=== PATIENT | female | born 1980 | race Caucasian/White ===

== ENCOUNTER 2018-09-18 05:30 | Inpatient (IN) | payer BC ==
[2018-09-18] MEDS ORDERED: OXYTOCIN 30 UNITS/LR 500 ML IV ×2 (06:00→13:00)
[2018-09-18] MEDS ORDERED: METHYLERGONOVINE 0.2 MG INJ IM ×2 (06:00→13:00)
[2018-09-18] MEDS ORDERED: CLINDAMYCIN 900 MG/D5W (PMX) 50 ML IVPB (06:00)
[2018-09-18] MEDS ORDERED: MISOPROSTOL 200 MCG TAB PR ×2 (06:00→13:00)
[2018-09-18] MEDS ORDERED: CARBOPROST 250 MCG INJ IM ×2 (06:00→13:00)
[2018-09-18 06:12] LABS: ADD MAN DIFF? NO
[2018-09-18 06:20] LABS: WHITE BLOOD COUNT 8.7 10^3/ul (4.8-10.8)
[2018-09-18 06:20] LABS: BASOPHILS % 0.2 % (0.0-2.0); EOSINOPHILS # 0.1 10^3/ul (0.0-0.5); EOSINOPHILS % 1.5 % (0.0-7.0); HEMATOCRIT 35.7 % (37.0-47.0); HEMOGLOBIN 11.7 g/dl (12.0-16.0); LYMPHOCYTES # 1.5 10^3/ul (0.8-2.9); LYMPHOCYTES % 17.2 % (15.0-51.0); MEAN CORPUSCULAR HEMOGLOBIN 27.4 pg (29.0-33.0); MEAN CORPUSCULAR HGB CONC 32.8 g/dl (32.0-37.0); MEAN CORPUSCULAR VOLUME 83.6 fl (82.0-101.0); MEAN PLATELET VOLUME 12.1 fl (7.4-10.4); MONOCYTE # 0.6 10^3/ul (0.3-0.9); NEUTROPHIL # 6.4 10^3/ul (1.6-7.5); NEUTROPHILS % 73.6 % (39.0-77.0); PLATELET COUNT 212 10^3/UL (140-415); RED BLOOD COUNT 4.27 10^6/ul (4.20-5.40)
[2018-09-18] MEDS: LACTATED RINGER'S 1,000 ML IV ×3 (06:31→17:19)
[2018-09-18 06:39] LABS: GLUCOSE 87 mg/dl (70-220)
[2018-09-18 06:40] LABS: INR 0.91; PROTIME 12.4 Sec (11.9-14.9)
[2018-09-18 06:41] LABS: PARTIAL THROMBOPLASTIN TIME 31.7 Sec (23.0-35.0)
[2018-09-18] MEDS ORDERED: GENTAMICIN 440 MG in SOD CHLORIDE 0.9% 100 ML IVPB (07:00)
[2018-09-18] MEDS: GENTAMICIN 120 MG/NS (PMX) 100 ML IVPB (07:00)
[2018-09-18] MEDS: CLINDAMYCIN 900 MG/D5W (PMX) 50 ML IVPB ×3 (07:17→21:06)
[2018-09-18] MEDS ORDERED: FENTAnyl 50 MCG/ML VIAL (08:00)
[2018-09-18] MEDS ORDERED: morphine SULFATE/PF (10 MG/10 ML) INJ (08:00)
[2018-09-18] MEDS ORDERED: ONDANSETRON 4 MG INJ (12:25)
[2018-09-18] MEDS: OXYTOCIN 30 UNITS/LR 500 ML IV ×2 (12:42→13:34)
[2018-09-18] MEDS ORDERED: DIPHENHYDRAMINE 50 MG INJ IV ×4 (13:00→17:30)
[2018-09-18] MEDS ORDERED: NALOXONE (0.4 MG/ML) INJ IV ×2 (13:00→17:30)
[2018-09-18] MEDS ORDERED: HYDROmorphONE 0.5 MG/0.5 ML SYG IV ×3 (13:00→17:30)
[2018-09-18] MEDS ORDERED: HYDROmorphONE 1 MG/5 ML IV SYRINGE IV ×6 (13:00→17:30)
[2018-09-18] MEDS ORDERED: OXYCODONE/ACETAMINOPHEN (5/325) TAB PO (13:00)
[2018-09-18] MEDS ORDERED: ALBUTEROL 0.083% (NEB) 2.5 MG/3 ML AMP HHN ×2 (13:00→17:30)
[2018-09-18] MEDS ORDERED: ONDANSETRON 4 MG INJ IV ×4 (13:00→17:30)
[2018-09-18] MEDS ORDERED: NACL 0.9% 3 ML SYG IV (13:00)
[2018-09-18] MEDS ORDERED: FENTAnyl 50 MCG/ML VIAL IV ×6 (13:00→17:30)
[2018-09-18] MEDS ORDERED: METOCLOPRAMIDE 10 MG INJ IV ×2 (13:00→17:30)
[2018-09-18] MEDS ORDERED: KETOROLAC 30 MG INJ IV ×2 (13:00→17:30)
[2018-09-18] MEDS: HYDROmorphONE 0.5 MG/0.5 ML SYG IV (13:34)
[2018-09-18] MEDS ORDERED: IBUPROFEN 800 MG TAB PO (14:00)
[2018-09-18] MEDS: DEXTROSE 5%-0.45% NACL 1,000 ML IV (14:00)
[2018-09-18] MEDS: ACCU-CHEK XX ×2 (14:15→20:05)
[2018-09-18] MEDS: KETOROLAC 30 MG INJ IV ×2 (16:11→22:47)
[2018-09-18] MEDS: INSULIN ASPART [NOVOLOG] 3 ML PEN SC ×2 (17:00→21:00)
[2018-09-18] MEDS: INSULIN GLARGINE [LANTus] (100 UNITS/ML) SYG SC (20:00)
[2018-09-18 21:55] LABS: RAPID PLASMA REAGIN NONREACTIVE (NR)
[2018-09-19] MEDS: ACCU-CHEK XX ×5 (02:00→20:05)
[2018-09-19] MEDS: LACTATED RINGER'S 1,000 ML IV (02:37)
[2018-09-19] MEDS: CLINDAMYCIN 900 MG/D5W (PMX) 50 ML IVPB (05:10)
[2018-09-19 06:48] LABS: ADD MAN DIFF? NO
[2018-09-19 06:50] LABS: WHITE BLOOD COUNT 9.5 10^3/ul (4.8-10.8)
[2018-09-19 06:50] LABS: BASOPHILS % 0.2 % (0.0-2.0); EOSINOPHILS # 0.1 10^3/ul (0.0-0.5); EOSINOPHILS % 0.7 % (0.0-7.0); HEMATOCRIT 31.5 % (37.0-47.0); HEMOGLOBIN 9.9 g/dl (12.0-16.0); LYMPHOCYTES # 1.1 10^3/ul (0.8-2.9); LYMPHOCYTES % 11.5 % (15.0-51.0); MEAN CORPUSCULAR HEMOGLOBIN 26.5 pg (29.0-33.0); MEAN CORPUSCULAR HGB CONC 31.4 g/dl (32.0-37.0); MEAN CORPUSCULAR VOLUME 84.5 fl (82.0-101.0); MEAN PLATELET VOLUME 12.1 fl (7.4-10.4); MONOCYTE # 0.7 10^3/ul (0.3-0.9); MONOCYTES % 6.9 % (0.0-11.0); NEUTROPHIL # 7.6 10^3/ul (1.6-7.5); NEUTROPHILS % 80.2 % (39.0-77.0); PLATELET COUNT 165 10^3/UL (140-415); RED BLOOD COUNT 3.73 10^6/ul (4.20-5.40); RED CELL DISTRIBUTION WIDTH 16.3 % (11.5-14.5)
[2018-09-19 07:12] LABS: HEMOGLOBIN A1C 5.5 % (0-5.9)
[2018-09-19] MEDS: INSULIN ASPART [NOVOLOG] 3 ML PEN SC ×7 (08:36→21:00)
[2018-09-19] MEDS: KETOROLAC 30 MG INJ IV (09:05)
[2018-09-19] MEDS: ENOXAPARIN 40 MG/0.4 ML SYG SC (09:44)
[2018-09-19] MEDS: OXYCODONE/ACETAMINOPHEN (5/325) TAB PO ×3 (12:22→22:47)
[2018-09-19] MEDS: IBUPROFEN 800 MG TAB PO ×2 (13:25→22:13)
[2018-09-19] MEDS: BETAMETHASONE/CLOTRIMAZOLE 15 GM CR TOP ×2 (19:30→22:48)
[2018-09-19] MEDS: LANOLIN HPA 1 PKT TOP (22:13)
[2018-09-20] MEDS: ACCU-CHEK XX ×5 (02:00→20:05)
[2018-09-20] MEDS: IBUPROFEN 800 MG TAB PO ×3 (05:40→21:31)
[2018-09-20] MEDS: INSULIN ASPART [NOVOLOG] 3 ML PEN SC ×4 (08:05→21:00)
[2018-09-20 08:35] LABS: ANION GAP 6 (5-13); BLOOD UREA NITROGEN 13 mg/dl (7-20); CARBON DIOXIDE 26 mmol/L (21-31); CHLORIDE 107 mmol/L (97-110); CREATININE 0.71 mg/dl (0.44-1.00); Estimated GFR > 60 mL/min (>60); GLUCOSE 110 mg/dl (70-220); POTASSIUM 4.5 mmol/L (3.5-5.1); SODIUM 139 mmol/L (135-144)
[2018-09-20] MEDS: ENOXAPARIN 40 MG/0.4 ML SYG SC (09:14)
[2018-09-20] MEDS: FERROUS SULFATE (EC) 325 MG TAB PO ×2 (09:14→21:30)
[2018-09-20] MEDS: OXYCODONE/ACETAMINOPHEN (5/325) TAB PO (15:34)
[2018-09-20] MEDS: metFORMIN 500 MG TAB PO (17:59)
[2018-09-21] MEDS: ACCU-CHEK XX ×3 (02:00→11:08)
[2018-09-21] MEDS: IBUPROFEN 800 MG TAB PO ×2 (05:52→14:26)
[2018-09-21] MEDS: INSULIN ASPART [NOVOLOG] 3 ML PEN SC ×2 (08:05→11:50)
[2018-09-21] MEDS: FERROUS SULFATE (EC) 325 MG TAB PO (08:46)
[2018-09-21] MEDS: metFORMIN 500 MG TAB PO (08:46)
[2018-09-21] MEDS: ENOXAPARIN 40 MG/0.4 ML SYG SC (08:48)
[2018-09-21] MEDS: OXYCODONE/ACETAMINOPHEN (5/325) TAB PO (08:57)
[2018-09-21] MEDS: BETAMETHASONE/CLOTRIMAZOLE 15 GM CR TOP (12:00)
== END 2018-09-21 14:55 | disposition home or self-care (01) | DRG 788 ==
LOC: L-D 05:30 → PP1 15:24
PROVIDERS: Obstetrics & Gynecology
PROC: 10D00Z1 Extraction of Products of Conception, Low, Open Approach (ICD-10-PCS; principal; 2018-09-18)
DX: O24.12 Pre-existing type 2 diabetes mellitus, in childbirth (principal); E11.9 Type 2 diabetes mellitus without complications; O99.214 Obesity complicating childbirth; E66.01 Morbid (severe) obesity due to excess calories; O34.211 Maternal care for low transverse scar from previous cesarean delivery; Z3A.39 39 weeks gestation of pregnancy; Z37.0 Single live birth; Z79.4 Long term (current) use of insulin
CPT/HCPCS: 62322; 80048; 82947; 82962; 83036; 85025; 85610; 85730; 86592; 86850; 86900; 86901; 99464